=== PATIENT | male | born 1965 | race Caucasian/White ===

== ENCOUNTER 2020-11-04 11:30 | Emergency (ER) | payer SELFPAY ==
[~2020-11-04] VITALS: Ht 175.3 cm; Wt 122.5 kg
[~2020-11-04 11:30] MED LIST: ASPIRIN EC81 MG PO; HYDROCHLOROTHIA25 MG PO; LOSARTAN POTASS25 MG; LOSARTAN POTASS25 MG PO; METOPROLOL TART50 MG PO
[2020-11-04] MEDS ORDERED: ALBUTEROL/IPRATROPIUM 3 ML NEB NEB ONE (12:00)
[2020-11-04] MEDS ORDERED: BAMLANIVIMAB 700 MG/20 ML VIAL IV ONE (13:15)
[2020-11-04] MEDS ORDERED: BAMLANIVIMAB 700 MG in SODIUM CHLORIDE 0.9% 250ML 250 ML IV ONE (14:30)
[2020-11-04 15:56] VITALS: BP 129/77
== END 2020-11-04 15:58 | disposition home or self-care (01) ==
LOC: ER 11:48
DX: U07.1 COVID-19 (principal); R05 Cough; R06.02 Shortness of breath; I10 Essential (primary) hypertension
CPT/HCPCS: 71045; 93005; 99284; J7050; U0002

== ENCOUNTER 2024-05-23 12:06 | Inpatient (IN) | payer OTHER ==
[2024-05-23] VITALS (12 sets, daily range): BP systolic 75–133; BP diastolic 16–96; PULSE 117–123; RESP 17–25; TEMP 97.7–98.2; O2SAT 92–100
[~2024-05-23] VITALS: Ht 175.3 cm; Wt 137.4 kg
[2024-05-23 12:47] LABS: BASOPHILS % 0.3 % (0.0-1.0); EOSINOPHILS # (AUTO) 0.1 (0.0-0.4); EOSINOPHILS % 1.4 % (0.0-6.0); HEMATOCRIT 32.3 % (38.2-49.6); HEMOGLOBIN 11.4 g/dL (14.0-18.0); LYMPHOCYTES % 13.4 % (18.0-39.1); MEAN CORPUSCULAR HEMOGLOBIN 35.5 pg (28-32); MEAN CORPUSCULAR HGB CONC 35.3 g/dL (31-35); MEAN CORPUSCULAR VOLUME 100.6 fL (81-99); MONOCYTES # (AUTO) 0.5 (0.2-0.8); MONOCYTES % 7.5 % (4.4-11.3); NEUTROPHILS # (AUTO) 5.6 (2.1-6.9); NEUTROPHILS % 77.1 % (38.7-80.0); PLATELET COUNT 216 x10e3/uL (140-360); RED BLOOD COUNT 3.21 x10e6/uL (4.3-5.7); RED CELL DISTRIBUTION WIDTH 13.6 % (11.7-14.4); WHITE BLOOD COUNT 7.24 x10e3/uL (4.8-10.8)
[2024-05-23 13:02] LABS: INR 1.04; PROTHROMBIN TIME 14.1 seconds (11.9-14.5)
[2024-05-23 13:03] LABS: PARTIAL THROMBOPLASTIN TIME 26.5 seconds (23.8-35.5)
[2024-05-23 13:10] LABS: ALBUMIN 3.8 g/dL (3.5-5.0); ALBUMIN/GLOBULIN RATIO 1.2 (0.8-2.0); BILIRUBIN,TOTAL 0.9 mg/dL (0.2-1.2); CALCIUM 9.8 mg/dL (8.4-10.2); CREATININE, SERUM 1.35 mg/dL (0.72-1.25); MAGNESIUM 1.6 MG/DL (1.3-2.1); TOTAL PROTEIN 6.9 g/dL (6.5-8.1)
[2024-05-23 13:16] LABS: TROPONIN I 0.034 ng/mL (0-0.300)
[2024-05-23] MEDS: SODIUM CHLORIDE 0.9% 500ML 500 ML IV ONE ×2 (13:19→14:09)
[2024-05-23] MEDS: DILTIAZEM HCL 5 MG/ML 5 ML VIAL IV STA (13:19)
[2024-05-23] MEDS ORDERED: PROPOFOL IV EMULSION 10 MG/ML 20 ML VIAL ONE (13:28)
[2024-05-23] MEDS ORDERED: LIDOCAINE HCL 2% LOCAL INJ 5 ML SDV VIAL INJ ONE (13:28)
[2024-05-23] MEDS ORDERED: INSULIN REGULAR, HUMAN 100 UNIT/1 ML IV ONE (13:30)
[2024-05-23] MEDS: METOPROLOL TARTRATE INJ 1 MG/ML VIAL IV ONE (14:10)
[2024-05-23] MEDS: DIGOXIN INJ 0.25 MG/ML 2 ML AMP IV ONE (14:15)
[2024-05-23] MEDS: INSULIN REGULAR, HUMAN 100 UNIT/1 ML IV ONE (14:18)
[2024-05-23] MEDS ORDERED: AMIODARONE HCL 150 MG/100 ML BAG IV ONE (15:00)
[2024-05-23] MEDS ORDERED: AMIODARONE HCL 150 MG in DEXTROSE 5% 100ML 100 ML IV SCH (15:15)
[2024-05-23] MEDS: AMIODARONE HCL 150 MG/100 ML BAG IV ONE (15:50)
[2024-05-23] MEDS ORDERED: DEXTROSE 50% SYRINGE 50 ML IV PRN ×2 (16:00→20:00)
[2024-05-23] MEDS ORDERED: ONDANSETRON HCL INJ 2MG/ML 2ML 2 MG/ML VIAL IV PRN (16:00)
[2024-05-23] MEDS: AMIODARONE 900MG 500 ML IV SCH ×2 (17:05→23:34)
[2024-05-23] MEDS: APIXABAN 5 MG TABLET PO SCH (18:33)
[2024-05-23] MEDS: POTASSIUM CHLORIDE 20 MEQ TAB CR PO ONE (18:33)
[2024-05-23] MEDS: INSULIN REGULAR, HUMAN 100 UNIT/1 ML SQ SCH (18:38)
[2024-05-23 20:35] LABS: FREE THYROXINE INDEX 2.3651 (1.4-3.8); T3 UPTAKE 30.44 % (22.5-37.0); T4 (THYROXINE) 7.77 ug/dL (4.5-10.9); THYROID STIMULATING HORMONE 2.1 uIU/mL (0.350-4.940)
[2024-05-23 20:51] LABS: TROPONIN I 0.01 ng/mL (0-0.300)
[2024-05-23] MEDS: INSULIN LISPRO 100 UNIT/1 ML 3ML VIAL SQ SCH (21:23)
[2024-05-24] VITALS (27 sets, daily range): BP systolic 82–146; BP diastolic 43–112; PULSE 80–124; RESP 13–29; TEMP 97.2–98.8; O2SAT 95–100
[2024-05-24 07:08] LABS: BASOPHILS # (AUTO) 0.1 (0.0-0.1); BASOPHILS % 0.7 % (0.0-1.0); EOSINOPHILS # (AUTO) 0.2 (0.0-0.4); EOSINOPHILS % 2.1 % (0.0-6.0); HEMATOCRIT 30.4 % (38.2-49.6); HEMOGLOBIN 10.6 g/dL (14.0-18.0); LYMPHOCYTES # (AUTO) 1.4 (1.0-3.2); LYMPHOCYTES % 18.7 % (18.0-39.1); MEAN CORPUSCULAR HEMOGLOBIN 35.8 pg (28-32); MEAN CORPUSCULAR HGB CONC 34.9 g/dL (31-35); MEAN CORPUSCULAR VOLUME 102.7 fL (81-99); MONOCYTES # (AUTO) 0.5 (0.2-0.8); MONOCYTES % 6.7 % (4.4-11.3); NEUTROPHILS # (AUTO) 5.5 (2.1-6.9); NEUTROPHILS % 71.3 % (38.7-80.0); PLATELET COUNT 172 x10e3/uL (140-360); RED BLOOD COUNT 2.96 x10e6/uL (4.3-5.7); RED CELL DISTRIBUTION WIDTH 13.7 % (11.7-14.4); WHITE BLOOD COUNT 7.64 x10e3/uL (4.8-10.8)
[2024-05-24 07:38] LABS: ALBUMIN 3.5 g/dL (3.5-5.0); ALBUMIN/GLOBULIN RATIO 1.3 (0.8-2.0); ANION GAP 13.5 mmol/L (8-16); BILIRUBIN,TOTAL 0.8 mg/dL (0.2-1.2); CALCIUM 9.3 mg/dL (8.4-10.2); CHOL/HDL RATIO 4.8 (3.9-4.7); CREATININE, SERUM 1.06 mg/dL (0.72-1.25); TOTAL PROTEIN 6.3 g/dL (6.5-8.1)
[2024-05-24 07:48] LABS: POTASSIUM 2.5 mmol/L (3.5-5.1)
[2024-05-24 08:04] LABS: TROPONIN I 0.025 ng/mL (0-0.300)
[2024-05-24] MEDS: POTASSIUM CHLORIDE 20 MEQ TAB CR PO ONE ×2 (08:54→13:37)
[2024-05-24] MEDS: MAGNESIUM SULF 1GRAM/DEXTROSE 100 ML IV ONE (09:58)
[2024-05-24] MEDS ORDERED: BENZOCAINE 20% SPR 60 ML CAN ONE (12:53)
[2024-05-24] MEDS ORDERED: SODIUM CHLORIDE 0.9% 1000ML 1,000 ML ONE (12:53)
[2024-05-24] MEDS: AMIODARONE HCL 200 MG TAB PO SCH (14:30)
== END 2024-05-24 15:31 | disposition left against medical advice (07) | DRG 309 ==
LOC: ER 12:27 → ERHOLD 15:54 → ICU 20:30
PROVIDERS: ADMIT Family Medicine; ATTEND Family Medicine
DX: R00.0 Tachycardia, unspecified (principal); E66.2 Morbid (severe) obesity with alveolar hypoventilation; I48.92 Unspecified atrial flutter; Z68.41 Body mass index [BMI] 40.0-44.9, adult; I10 Essential (primary) hypertension; I48.91 Unspecified atrial fibrillation; D86.9 Sarcoidosis, unspecified; E87.6 Hypokalemia; E11.9 Type 2 diabetes mellitus without complications; Z79.82 Long term (current) use of aspirin
CPT/HCPCS: 36415; 71045; 80053; 80061; 82550; 82948; 83036; 83735; 83880; 84436; 84443; 84479; 84484; 85025; 85610; 85730; 93005; 93307; 93312; 93320; 93325; 94660; 96372; 99284; J1160; J2001; J3475; J7030; J7040; U0002

== ENCOUNTER 2025-01-24 13:58 | Inpatient (IN) | payer OTHER ==
[~2025-01-24] VITALS: Ht 175.3 cm; Wt 134.4 kg
[2025-01-24 15:00] LABS: BASOPHILS % 0.7 % (0.0-1.0); EOSINOPHILS # (AUTO) 0.1 (0.0-0.4); EOSINOPHILS % 2.2 % (0.0-6.0); HEMATOCRIT 22.9 % (38.2-49.6); LYMPHOCYTES # (AUTO) 0.8 (1.0-3.2); LYMPHOCYTES % 14.5 % (18.0-39.1); MEAN CORPUSCULAR HEMOGLOBIN 26.1 pg (28-32); MEAN CORPUSCULAR HGB CONC 30.6 g/dL (31-35); MEAN CORPUSCULAR VOLUME 85.4 fL (81-99); MONOCYTES # (AUTO) 0.4 (0.2-0.8); MONOCYTES % 7.4 % (4.4-11.3); NEUTROPHILS # (AUTO) 4.3 (2.1-6.9); NEUTROPHILS % 74.5 % (38.7-80.0); PLATELET COUNT 215 x10e3/uL (140-360); RED BLOOD COUNT 2.68 x10e6/uL (4.3-5.7); RED CELL DISTRIBUTION WIDTH 17.3 % (11.7-14.4); WHITE BLOOD COUNT 5.79 x10e3/uL (4.8-10.8)
[2025-01-24 15:26] LABS: ALBUMIN 3.5 g/dL (3.5-5.0); ALBUMIN/GLOBULIN RATIO 1.2 (0.8-2.0); ANION GAP 17.2 mmol/L (8-16); CALCIUM 8.4 mg/dL (8.4-10.2); CREATININE, SERUM 1.36 mg/dL (0.72-1.25); POTASSIUM 3.2 mmol/L (3.5-5.1); TOTAL PROTEIN 6.5 g/dL (6.5-8.1)
[2025-01-24 15:45] LABS: BILIRUBIN,URINE NEGATIVE (NEGATIVE); CLARITY,URINE CLEAR (CLEAR); COLOR,URINE YELLOW (YELLOW); GLUCOSE, URINE 500 (NEGATIVE); KETONES,URINE NEGATIVE (NEGATIVE); LEUKOCYTE ESTERASE ,URINE NEGATIVE (NEGATIVE); NITRITE,URINE NEGATIVE (NEGATIVE); PH,URINE 5.5 (5 - 7); PROTEIN,URINE DIPSTICK NEGATIVE (NEGATIVE); URINE UROBILINOGEN 0.2 mg/dL (0.2 - 1)
[2025-01-24 15:58] LABS: WBC,URINE (MAN) 0-5 /HPF (0-5)
[2025-01-24] MEDS ORDERED: SODIUM CHLORIDE 0.9% 1000ML 1,000 ML IV STA (17:03)
[2025-01-24] MEDS: INSULIN REGULAR, HUMAN 100 UNIT/1 ML IV ONE (17:18)
[2025-01-24] MEDS ORDERED: IOPAMIDOL 370 MG/ML 100 ML INFUS..BTL INJ ONE (17:25)
[2025-01-24] MEDS: FUROSEMIDE INJ 10 MG/ML 4 ML VIAL IV PRN (17:43)
[2025-01-24] MEDS: OCTREOTIDE ACETATE 0.05 MG/ML AMP IV STA (17:44)
[2025-01-24] MEDS: SODIUM CHLORIDE 0.9% 1000ML 1,000 ML IV STA (17:44)
[2025-01-24] MEDS: OCTREOTIDE ACETATE 500 MCG in SODIUM CHLORIDE 0.9% 250ML 249 ML IV SCH (17:45)
[2025-01-24 17:51] LABS: AMPHETAMINES SCREEN,URINE NEGATIVE (NEGATIVE); BENZODIAZEPINES SCREEN,URINE NEGATIVE (NEGATIVE); CANNABINOIDS SCREEN,URINE NEGATIVE (NEGATIVE); COCAINE SCREEN,URINE NEGATIVE (NEGATIVE); METHADONE SCREEN, URINE NEGATIVE (NEGATIVE); OPIATES SCREEN,URINE NEGATIVE (NEGATIVE); PHENCYCLIDINE SCREEN,URINE NEGATIVE (NEGATIVE)
[2025-01-24 17:54] LABS: INR 1.23; PROTHROMBIN TIME 16.6 seconds (11.9-14.5)
[2025-01-24 18:01] LABS: TROPONIN I 0.01 ng/mL (0-0.300)
[2025-01-24] MEDS: SODIUM CHLORIDE 0.9% 1000ML 1,000 ML IV SCH (19:30)
[2025-01-24] MEDS ORDERED: Morphine 4mg INJECTION 4 MG/ML INJ IV PRN (19:30)
[2025-01-24] MEDS ORDERED: ONDANSETRON HCL INJ 2MG/ML 2ML 2 MG/ML VIAL IV PRN (19:30)
[2025-01-24 20:50] VITALS: PULSE 72; RESP 20; TEMP 98.2
[2025-01-24 21:05] VITALS: PULSE 75; RESP 16; O2SAT 98
[2025-01-24 21:44] VITALS: BP 114/70; PULSE 78; RESP 20; TEMP 97.8; O2SAT 100
[2025-01-24 22:18] VITALS: BP 114/74; PULSE 70; RESP 18; TEMP 97.8; O2SAT 100
[2025-01-24 22:19] VITALS: BP 114/72; PULSE 74; RESP 20; TEMP 97.8; O2SAT 100
[2025-01-24] MEDS ORDERED: TORSEMIDE20 MG PO (22:35)
[2025-01-24] MEDS ORDERED: POTASSIUM CHLO20 ME2 PO (22:35)
[2025-01-24] MEDS ORDERED: CARVEDILOL25 MG PO (22:35)
[2025-01-24] MEDS ORDERED: CYANOCOBALAMIN SUBD (22:35)
[2025-01-24] MEDS ORDERED: CELECOXIB200 MG PO (22:35)
[2025-01-24] MEDS ORDERED: SEMAGLUTIDE SUBD (22:35)
[2025-01-24] MEDS ORDERED: ELIQUIS5 MG PO (22:35)
[2025-01-24] MEDS ORDERED: ROSUVASTATIN CA10 MG PO (22:35)
[2025-01-24] MEDS ORDERED: MULTAQ 400MG T400 MG PO (23:38)
[2025-01-25] VITALS (9 sets, daily range): BP systolic 104–164; BP diastolic 71–99; PULSE 77–92; RESP 18–21; TEMP 97.4–98.4; O2SAT 95–100
[2025-01-25] MEDS ORDERED: SODIUM CHLORIDE 0.9% 250ML 250 ML ONE (00:41)
[2025-01-25] MEDS: SODIUM CHLORIDE 0.9% 250ML 250 ML IV ONE ×2 (00:43→00:44)
[2025-01-25 06:35] LABS: BASOPHILS # (AUTO) 0.1 (0.0-0.1); BASOPHILS % 0.9 % (0.0-1.0); EOSINOPHILS # (AUTO) 0.2 (0.0-0.4); EOSINOPHILS % 2.8 % (0.0-6.0); HEMATOCRIT 28.2 % (38.2-49.6); HEMOGLOBIN 8.9 g/dL (14.0-18.0); LYMPHOCYTES # (AUTO) 0.6 (1.0-3.2); LYMPHOCYTES % 8.3 % (18.0-39.1); MEAN CORPUSCULAR HEMOGLOBIN 26.5 pg (28-32); MEAN CORPUSCULAR HGB CONC 31.6 g/dL (31-35); MEAN CORPUSCULAR VOLUME 83.9 fL (81-99); MONOCYTES # (AUTO) 0.4 (0.2-0.8); MONOCYTES % 5.7 % (4.4-11.3); NEUTROPHILS # (AUTO) 6.3 (2.1-6.9); NEUTROPHILS % 81.8 % (38.7-80.0); PLATELET COUNT 230 x10e3/uL (140-360); RED BLOOD COUNT 3.36 x10e6/uL (4.3-5.7); RED CELL DISTRIBUTION WIDTH 16.5 % (11.7-14.4); WHITE BLOOD COUNT 7.72 x10e3/uL (4.8-10.8)
[2025-01-25 07:03] LABS: ALBUMIN 3.7 g/dL (3.5-5.0); ALBUMIN/GLOBULIN RATIO 1.2 (0.8-2.0); ANION GAP 16.9 mmol/L (8-16); BILIRUBIN,TOTAL 1.7 mg/dL (0.2-1.2); CALCIUM 8.5 mg/dL (8.4-10.2); CREATININE, SERUM 1.12 mg/dL (0.72-1.25); TOTAL PROTEIN 6.9 g/dL (6.5-8.1)
[2025-01-25 07:07] LABS: POTASSIUM 2.9 mmol/L (3.5-5.1)
[2025-01-25 07:30] LABS: TROPONIN I 0.014 ng/mL (0-0.300)
[2025-01-25] MEDS: POTASSIUM CHLORIDE 10MEQ/100ML 100 ML IV SCH ×2 (09:53→16:33)
[2025-01-25 13:35] LABS: TROPONIN I 0.016 ng/mL (0-0.300)
[2025-01-25] MEDS ORDERED: DEXTROSE 50% SYRINGE 50 ML IV PRN (14:30)
[2025-01-25] MEDS: INSULIN GLARGINE 100 UNITS/ML VIAL SQ SCH (14:35)
[2025-01-25 15:05] LABS: FREE THYROXINE INDEX 1.9023 (1.4-3.8); T3 UPTAKE 33.67 % (22.5-37.0); T4 (THYROXINE) 5.65 ug/dL (4.5-10.9); THYROID STIMULATING HORMONE 0.535 uIU/mL (0.350-4.940)
[2025-01-25] MEDS: CARVEDILOL 12.5 MG TAB PO SCH (17:40)
[2025-01-25] MEDS: METOPROLOL TARTRATE 50 MG TAB PO SCH (17:41)
[2025-01-25] MEDS: INSULIN LISPRO 100 UNIT/1 ML 3ML VIAL SQ SCH (17:53)
[2025-01-25] MEDS: CRESTOR 10MG PO SCH (20:22)
[2025-01-26] VITALS: BP 111/82; PULSE 80; RESP 18; TEMP 98.1; O2SAT 97
[2025-01-26 00:20] LABS: % IRON SATURATION 8 % (15-50); IRON 45 ug/dL (65-175); TOTAL IRON BINDING CAPACITY 580 ug/dL (261-478); TRANSFERRIN 414 mg/dL (174-364)
[2025-01-26] MEDS: THIAMINE HCL INJ 100 MG/ML 2ML VIAL IV ONE (00:45)
[2025-01-26 04:00] VITALS: BP 126/90; PULSE 53; RESP 19; TEMP 97.5; O2SAT 100
[2025-01-26 06:45] LABS: ABG HCO3 34 mmol/L (22-26); ABG PCO2 46 mmHg (35-45); ABG PH 7.47 (7.35-7.45); ABG PO2 48 mmHg (80-105); ABG TCO2 35
[2025-01-26] MEDS ORDERED: THIAMINE HCL INJ 100 MG/ML 2ML VIAL IV SCH (09:00)
[2025-01-26] MEDS ORDERED: LOSARTAN POTASSIUM 25 MG TAB PO SCH (09:00)
[2025-01-26] MEDS ORDERED: DRONEDARONE 400 MG TAB PO SCH (09:00)
== END 2025-01-26 05:50 | disposition left against medical advice (07) | DRG 811 ==
LOC: ER 17:05 → ERHOLD 19:26 → MED/SURG2 21:47
PROVIDERS: ADMIT Family Medicine; ATTEND Family Medicine
PROC: 4A133R1 Monitoring of Arterial Saturation, Peripheral, Percutaneous Approach (ICD-10-PCS; principal; 2025-01-24)
PROC: 30233N1 Transfusion of Nonautologous Red Blood Cells into Peripheral Vein, Percutaneous Approach (ICD-10-PCS; 2025-01-24)
DX: D64.9 Anemia, unspecified (principal); I11.0 Hypertensive heart disease with heart failure; I50.23 Acute on chronic systolic (congestive) heart failure; E66.2 Morbid (severe) obesity with alveolar hypoventilation; K92.1 Melena; Z68.41 Body mass index [BMI] 40.0-44.9, adult; E87.1 Hypo-osmolality and hyponatremia; I48.91 Unspecified atrial fibrillation; E87.5 Hyperkalemia; E11.65 Type 2 diabetes mellitus with hyperglycemia; F10.10 Alcohol abuse, uncomplicated; R53.81 Other malaise; Z79.4 Long term (current) use of insulin; Z79.82 Long term (current) use of aspirin; Z79.01 Long term (current) use of anticoagulants; Z91.148 Patient's other noncompliance with medication regimen for other reason
CPT/HCPCS: 36415; 70450; 71045; 74177; 80053; 80307; 80320; 81001; 82140; 82550; 82607; 82805; 82948; 83540; 83690; 83880; 84436; 84443; 84466; 84479; 84484; 85025; 85045; 85610; 85730; 86850; 86900; 86920; 93005; 93306; 94799; 99284; J1815; J1938; J2353; J2354; J2470; J3411; J3480; J7030; J7050; P9016; Q9967